=== PATIENT | male | born 2000 | race Caucasian/White ===

== ENCOUNTER 2021-02-01 14:58 | Emergency (ER) | payer OTHER ==
[2021-02-01 15:18] VITALS: BP 117/76; PULSE 71; TEMP 98.6; BMI 21.2
[2021-02-01] MEDS ORDERED: IBUPROFEN 600 MG TABLET (FP) PO ONE ×2 (16:19→16:28)
== END 2021-02-01 16:31 | disposition home or self-care (01) ==
LOC: JER 14:58 → JERFT 14:58
DX: L03.012 Cellulitis of left finger (principal)
CPT/HCPCS: 73140-TC-LT-FY; 99283-25

== ENCOUNTER 2023-08-04 06:31 | Emergency (ER) | payer OTHER ==
[2023-08-04 06:50] VITALS: RESP 20; TEMP 99; BMI 23.6
[2023-08-04] MEDS ORDERED: KETOROLAC TROMETHAMINE 30 MG/1 ML VIAL IM ONE (07:36)
[2023-08-04] MEDS ORDERED: DEXAMETHASONE SOD PHOSPHATE 10 MG/1 ML VIAL IM ONE (07:36)
[2023-08-04] MEDS ORDERED: KETOROLAC TROMETHAMINE 30 MG/1 ML VIAL ONE (07:39)
[2023-08-04] MEDS ORDERED: DEXAMETHASONE SOD PHOSPHATE 10 MG/1 ML VIAL ONE (07:39)
[2023-08-04 09:07] VITALS: BP 127/80; PULSE 63
== END 2023-08-04 08:58 | disposition home or self-care (01) ==
LOC: JER 06:31
PROC: 3E0233Z Introduction of Anti-inflammatory into Muscle, Percutaneous Approach (ICD-10-PCS; principal; 2023-08-04)
PROC: 3E033GC Introduction of Other Therapeutic Substance into Peripheral Vein, Percutaneous Approach (ICD-10-PCS; 2023-08-04)
DX: R50.9 Fever, unspecified (principal); M79.10 Myalgia, unspecified site; J02.9 Acute pharyngitis, unspecified; R59.0 Localized enlarged lymph nodes; Z20.822 Contact with and (suspected) exposure to COVID-19
CPT/HCPCS: 0241U-QW; 99284-25; J1100

== ENCOUNTER 2024-01-24 19:37 | Emergency (ER) | payer OTHER ==
[2024-01-24 20:28] VITALS: BP 132/75; PULSE 79; RESP 18; TEMP 98.8; BMI 25.1
[2024-01-24] MEDS ORDERED: FAMOTIDINE 20 MG/50 ML IVPB 20 MG/50 ML MG IVPB ONE (20:53)
[2024-01-24 21:01] LABS: HEMATOCRIT 43.9 % (35.4-49); HEMOGLOBIN 14.3 G/dL (11.7-16.9); MCH 30.3 pg (25.7-33.7); MCHC 32.5 g/dl (32.0-35.9); MEAN CELL VOLUME 93.1 fl (80-96); PLATELET COUNT 263.9 10^3/uL (134-434); RBC 4.71 10^6/uL (4.00-5.60); RDW 13.9 % (11.9-15.9); WHITE BLOOD COUNT 6.2 10^3/uL (4.0-10.8)
[2024-01-24] MEDS: FAMOTIDINE 20 MG/50 ML IVPB 20 MG/50 ML MG IVPB ONE (21:04)
[2024-01-24] MEDS: SODIUM CHLORIDE 1,000 ML IV STA (21:04)
[2024-01-24 21:12] LABS: ALBUMIN 4.5 g/dl (3.4-5.0); BILIRUBIN,TOTAL 0.5 mg/dl (0.2-1); CALCIUM 9.6 mg/dl (8.5-10.1); CREATININE 0.9 mg/dl (0.6-1.3); POTASSIUM 3.9 mmol/L (3.5-5.1); TOT PROT 7.1 g/dl (6.4-8.2)
[2024-01-24 21:16] LABS: PLATELET ESTIMATE ADEQUATE
== END 2024-01-24 22:29 | disposition home or self-care (01) ==
LOC: FER 19:37
PROC: 3E033GC Introduction of Other Therapeutic Substance into Peripheral Vein, Percutaneous Approach (ICD-10-PCS; principal; 2024-01-24)
DX: R10.30 Lower abdominal pain, unspecified (principal); R11.2 Nausea with vomiting, unspecified; A08.4 Viral intestinal infection, unspecified
CPT/HCPCS: 36415; 80053; 81003; 81015; 83690; 85027; 87045; 87046; 99284-25